=== PATIENT | male | born 1990 | race Caucasian/White ===

== ENCOUNTER 2016-10-11 19:20 | Emergency (ER) ==
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
[2016-10-11 21:34] VITALS: BP 159/95
--- NOTE | 2016-10-12 08:21 | Diag Imaging Result Document ---
PROCEDURE NAME: TRAUMA SHOULDER LEFT - 10/11/2016 LEFT SHOULDER THREE VIEWS INCLUDING AN AXILLARY Y VIEW: FINDINGS: No separation at the acromioclavicular joint. No fracture. No dislocation. No other bony abnormality. IMPRESSION: Negative exam.
== END 2016-10-11 21:33 | disposition home or self-care (01) ==
LOC: P.ED 19:20
DX: S46.912A Strain of unspecified muscle, fascia and tendon at shoulder and upper arm level, left arm, initial encounter (principal); M25.512 Pain in left shoulder; M19.072 Primary osteoarthritis, left ankle and foot; F17.210 Nicotine dependence, cigarettes, uncomplicated
CPT/HCPCS: 99283